=== PATIENT | male | born 1995 | race American Indian/Alaskan Native ===

== ENCOUNTER 2021-02-01 14:29 | Emergency (ER) | payer OTHER ==
[2021-02-01 15:58] VITALS: BP 123/86
[2021-02-01] MEDS ORDERED: dexAMETHasone 4 MG/ML VIAL IM ONE (19:01)
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
[2021-02-01] MEDS ORDERED: ACETAMINOPHEN 500 MG TAB PO ONE (19:02)
== END 2021-02-01 20:05 | disposition home or self-care (01) ==
LOC: ED 14:29
DX: T14.8XXA Other injury of unspecified body region, initial encounter (principal); M62.838 Other muscle spasm; F17.200 Nicotine dependence, unspecified, uncomplicated; F12.90 Cannabis use, unspecified, uncomplicated; Z98.890 Other specified postprocedural states; Z79.899 Other long term (current) drug therapy; V49.59XA Passenger injured in collision with other motor vehicles in traffic accident, initial encounter; Y92.410 Unspecified street and highway as the place of occurrence of the external cause; Y93.89 Activity, other specified; Y99.8 Other external cause status
CPT/HCPCS: 96372; 99282; J1100